=== PATIENT | female | born 1990 | race Caucasian/White ===

== ENCOUNTER → 2022-03-26 | Outpatient (REF) | payer BC ==
[2022-03-26 19:05] LABS: APPEARANCE, URINE MANUAL HAZY (CLEAR); COLOR, URINE MANUAL YELLOW (YELLOW)
[2022-03-26 19:06] LABS: GLUCOSE, URINE (UA) MANUAL NEGATIVE (NEGATIVE); KETONE, URINE MANUAL NEGATIVE (NEGATIVE); PROTEIN, URINE MANUAL TRACE mg/dL (NEGATIVE); SPECIFIC GRAVITY,URINE MANUAL 1.025 (1.002-1.035); UROBILINOGEN, URINE MANUAL NORMAL (NORMAL)
[2022-03-26 19:07] LABS: BILIRUBIN, URINE MANUAL NEGATIVE (NEGATIVE); BLOOD URINE MANUAL TRACE (NEGATIVE); LEUKOCYTE ESTERASE, URINE MAN POSITIVE (NEGATIVE); NITRITE, URINE MANUAL NEGATIVE (NEGATIVE)
[2022-03-26 19:42] LABS: WBC, URINE 20-30 /hpf (0-3)
[2022-03-26 19:43] LABS: BACTERIA, URINE MOD AMOUNT; HYALINE CAST, URINE 0-1 /lpf (0-1); MUCUS, URINE SMALL AMOUNT (NEGATIVE); SQUAMOUS EPITHELIAL CELL URINE MOD AMOUNT /hpf (SMALL AMT)
== END ==
LOC: M LAB REF 18:28
PROVIDERS: ATTEND Physician Assistant Medical
DX: N39.0 Urinary tract infection, site not specified (principal)

== ENCOUNTER → 2022-06-16 | Outpatient (CLI) | payer BC | LOC: M SOG 08:31 | PROVIDERS: ATTEND Orthopaedic Surgery | DX: M54.2 Cervicalgia (principal); M25.532 Pain in left wrist ==

== ENCOUNTER → 2023-04-19 | Outpatient (CLI) | payer BC | LOC: M SOG 08:57 | PROVIDERS: ATTEND Orthopaedic Surgery | DX: M25.532 Pain in left wrist (principal) ==

== ENCOUNTER → 2023-06-28 | Outpatient (CLI) | payer BC ==
[~2023-06-28] MED LIST: ISOVUE-300 61% 100ML VIAL As Ordered ONE; LIDOCAINE 1% MDV 20ML VIAL As Ordered ONE; PROHANCE 279.3MG/ML 5ML VIAL As Ordered ONE
== END ==
LOC: M RAD 06:46
PROVIDERS: ATTEND Orthopaedic Surgery Hand Surgery
DX: M25.532 Pain in left wrist (principal)
CPT/HCPCS: 25246; 73223; 77002; A9576; Q9967

== ENCOUNTER 2023-11-06 07:27 | Outpatient (RCR) | payer BC | END 2023-11-07 | LOC: M OT 07:27 | PROVIDERS: ATTEND Orthopaedic Surgery Hand Surgery | DX: M25.532 Pain in left wrist (principal) ==

== ENCOUNTER 2023-12-01 07:30 | Outpatient (RCR) | payer BC | END 2023-12-08 | LOC: M OT 07:30 | PROVIDERS: ATTEND Orthopaedic Surgery Hand Surgery | DX: M25.532 Pain in left wrist (principal) ==

== ENCOUNTER 2023-12-15 08:54 | Outpatient (RCR) | payer BC | END 2024-01-07 | LOC: M OT 08:54 | PROVIDERS: ATTEND Orthopaedic Surgery Hand Surgery | DX: M25.539 Pain in unspecified wrist (principal) ==